=== PATIENT | female | born 1975 | race Asian ===

== ENCOUNTER 2021-02-09 19:08 | Emergency (ER) | payer OTHER ==
[~2021-02-09] VITALS: Ht 152.4 cm; Wt 55.9 kg
[2021-02-09] MEDS ORDERED: IBUPROFEN 600 MG TABLET PO ONE (22:45)
[2021-02-10 00:06] VITALS: BP 134/73
== END 2021-02-10 00:33 | disposition home or self-care (01) ==
LOC: EMS 19:08
DX: S00.93XA Contusion of unspecified part of head, initial encounter (principal); Y04.0XXA Assault by unarmed brawl or fight, initial encounter; Y93.89 Activity, other specified; Y92.89 Other specified places as the place of occurrence of the external cause; Y99.8 Other external cause status
CPT/HCPCS: 70486; 84703; 99284; Z7502; Z7610